=== PATIENT | male | born 1995 | race Two or more races ===

== ENCOUNTER → 2021-01-19 | Emergency (ER) | payer SELFPAY ==
[~2021-01-19] VITALS: Ht 167.6 cm; Wt 49.9 kg
[~2021-01-19] MED LIST: CYCLOBENZAPRINE 10 MG TABLET ONE; IBUPROFEN 200 MG TABLET ONE
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
[2021-01-19] MEDS: CYCLOBENZAPRINE 10 MG TABLET PO ONE (16:41)
[2021-01-19] MEDS: IBUPROFEN 400 MG TABLET PO ONE (16:41)
[2021-01-19 17:13] VITALS: BP 104/69
--- NOTE | 2021-01-19 17:15 | NUR ---
Patient alert and oriented x4. Patient discharged to home in stable condition. Written and verbal after care instructions given. Patient verbalizes understanding of instruction. The patient left ER in stable conditon and with her sister.
== END | disposition home or self-care (01) ==
LOC: ER 15:56
DX: R51.9 Headache, unspecified (principal); M54.5 Low back pain; V49.59XA Passenger injured in collision with other motor vehicles in traffic accident, initial encounter; Y93.89 Activity, other specified; Y92.413 State road as the place of occurrence of the external cause; Y99.8 Other external cause status
CPT/HCPCS: 70450-TC; 72125-TC